=== PATIENT | female | born 2000 | race Caucasian/White ===

== ENCOUNTER 2024-03-03 08:32 | Outpatient (OUT) | payer OTHER, MEDICAID, SELFPAY ==
--- NOTE | 2024-03-03 13:02 | PC.NURSE ---
Ham and 2 week old Ruddy arrive for support. Ham, a first time mother, and Ruddy who was delivered at 37 weeks GA are struggling with weight gain, tongue and lip ties and latch issues. Ruddy tends to be sleepy, difficult to wake or to keep feeding at breast, does not do well with bottle either as he chokes and spills milk during feed. Ham denies noticing any breast changes during , noted big changes after baby was born . States is bringing infant to breast every 2-3 hours, baby will latch but only sucks a few times. Pumps 3 X per day, obtaining 4-6 oz from each breast during pumping session. Using a Mom cozy pump that she feels is working well. Baby then bottle fed 30ml of pumped milk, mom has enough pumped milk for feeds. Ruddy weight obtained, and is 2770 gms (6-1.5) today. was discharged from hospital on day 3 with weight loss of 10.1%. Today is 1.3 % down. reported to have 8-10 wets and small smear of stool each diaper change with larger stools 4-5 times daily. Infant awakened with stimulation and immediately begins licking and searching hands. Handed to mom, brings to breast with support in diaper area, and under head. latches to nipple only , lips pursed around nipple, narrow gape and weak suck noted. settles in to sleep. Baby off breast, coaches mom to position infant well, with cross cradle hold and breast support. Baby immediately begins strong rooting at nipple, mom brings in deep and baby latched well. Infant continues to actively suck and swallow fo r17 minutes. Reviewed why this latch is better for infant and easier for mom. Handout given to support information. Discussed LPI and struggles with feedings as well and impact of tongue and lip tie for latch and feeding. notes that once infant has latched deep, continues to nurses well. No reports of nipple pain for mom. Nipple out of mouth rounded without creases. Mom independently latches baby to second breast. Copy of discharge instruction to mom as well as other information. Baby's weight after nursing both breasts up 1.5 oz. Contact # given for mom to reach support over holiday weekend if needed. Scheduled to return 03/11/2024 after revision of tongue and lip for further support and stretch exercises. Mom states feels so much better after appointment and is hopeful all will be well. Leaves ambulatory for e with juventino Fox
== END 2024-03-03 11:25 | disposition home or self-care (01) ==
PROVIDERS: Family Provider Family Medicine; Visit Provider Obstetrics & Gynecology
DX: Z39.1 Encounter for care and examination of lactating mother (principal)
CPT/HCPCS: G0463

== ENCOUNTER 2024-03-11 08:44 | Outpatient (OUT) | payer OTHER, MEDICAID, SELFPAY ==
--- NOTE | 2024-03-11 12:01 | PC.NURSE ---
Ham and 3week 2 day old Ruddy arrive for support. Mom states baby had upper lip tie and tongue tie revised on 03/08/[address] Garcia. States noted and immediate difference with latch and sucking pattern. Mouth assessed and infant has healing wounds in upper lip as well as under tongue. Tongue movement past lower lip and lateral is markedly increased. Able to roll upper lip easily and o restriction noted. Mom states has been latching well each feeding and extending time at the breast as well. Continues to pump after each feed and offers 15 ml of pumped milk via bottle. weighed today, noted to have large wet and moderate yellow stool, diaper changed. Weight increased, is over weight of 6-3, up to 6-10 today. Mom pleased as is 4 oz over weight taken at PCP on 03/09/2024. Baby to breast independently per mom. Shallow latch noted. Coached to remove and practice asymmetrical latching. Infant has immediate latch, deep sucking and audible swallow. Mom states will practice better latching as she noted change in infant at the breast with better latching. Continues to do stretches as prescribed post oral revision as well as massage and exercises taught prior to oral revision. Mom states is feeling confident in ability to continue nursing , decreasing supplements gradually as becomes more efficient with nursing. Aware to call for concerns when first noted and aware of [facility] group for additional support. Mom and baby home at this time.
== END 2024-03-11 12:23 | disposition home or self-care (01) ==
PROVIDERS: Family Provider Family Medicine; Visit Provider Obstetrics & Gynecology
DX: Z39.1 Encounter for care and examination of lactating mother (principal)
CPT/HCPCS: G0463